=== PATIENT | male | born 1955 | race Two or more races ===

== ENCOUNTER 2024-07-03 08:24 | Outpatient (CLI) | payer OTHER ==
[~2024-07-03 08:24] MED LIST: AVALIDE 150-12.1 TA1
== END 2024-07-03 08:29 | disposition home or self-care (01) ==
LOC: SONOGRAMA 08:24
PROVIDERS: ATTEND Pathology Anatomic Pathology
DX: D34 Benign neoplasm of thyroid gland (principal); E07.89 Other specified disorders of thyroid; E04.2 Nontoxic multinodular goiter